=== PATIENT | male | born 2000 | race Caucasian/White ===

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

== ENCOUNTER 2020-05-02 14:52 | Emergency (ER) | payer BC ==
[~2020-05-02] VITALS: Ht 180.3 cm; Wt 136.4 kg
[2020-05-02 14:55] VITALS: TEMP 97.7
[2020-05-02 15:55] VITALS: BP 129/87; PULSE 97
== END 2020-05-02 15:57 | disposition home or self-care (01) ==
LOC: COL.ER 14:52
DX: S70.11XA Contusion of right thigh, initial encounter (principal); S90.31XA Contusion of right foot, initial encounter; S30.1XXA Contusion of abdominal wall, initial encounter; R40.2410 Glasgow coma scale score 13-15, unspecified time; V86.35XA Unspecified occupant of 3- or 4- wheeled all-terrain vehicle (ATV) injured in traffic accident, initial encounter